=== PATIENT | male | born 1945 | race Caucasian/White ===

== ENCOUNTER 2017-07-02 00:12 | Observation (INO) ==
[2017-07-02] MEDS ORDERED: Ondansetron 4 MG/2 ML VIAL IVP ONE ×3 (00:34→04:33)
[2017-07-02] MEDS ORDERED: Ketorolac 30 MG/ML VIAL IVP ONE (00:34)
[2017-07-02] MEDS ORDERED: *HR* HYDROmorphone (PF) 1 MG/ML SYRINGE IVP ONE ×2 (00:34→02:46)
[2017-07-02 00:46] LABS: Bilirubin,Urine Negative (Negative); Blood,Urine Large (Negative); Clarity,Urine Cloudy (Clear); Color,Urine Yellow (Yellow); Glucose,Urine (UA) Normal (Normal); Ketones,Urine Negative (Negative); Leukocyte Esterase,Urine Negative (Negative); Nitrite,Urine Negative (Negative); Protein,Urine 30 mg/dL (Neg-Trace); Specific Gravity,Urine 1.025 (1.010-1.025); Urobilinogen,Urine Normal (Normal)
[2017-07-02 00:48] LABS: Bacteria,Urine None Seen per hpf (None-Few); Hyaline Casts,Urine None Seen per lpf (None-Few); RBC,Urine TNTC per hpf (0-3); Squamous Epithelial Cell,Urine Moderate per lpf (None-Few)
--- NOTE | 2017-07-02 00:51 | Emergency Department Note ---
Disposition Clinical Impression: Kidney stone on left side Disposition: Home, Self-Care Condition: Good Instructions: Kidney Stones (ED) Reasons to Return/Additional Instructions: Return if you have new/worsening pain. Follow up with your urologist in the next 1 week. Prescriptions: OxyCODONE/APAP 5/325 [Percocet 5/325 MG] 1 each PO Q4HR PRN #20 tablet PRN Reason: Pain Ondansetron ODT [Zofran ODT] 4 mg SL Q6HR PRN #10 tab.rapdis PRN Reason: Nausea And Vomiting Naproxen [Naprosyn] 500 mg PO BID #14 tablet Referrals: Mario Gottlieb DO [Primary Care Provider] - Kavon Sanders MD [Partnered Physician] - Forms: ED Satisfaction Letter, Work/School Release General Adult HPI - General Chief complaint: ED Abdominal Pain Stated complaint: kidney stones Time Seen by Provider: 07/02/17 00:14 Source: patient, EMS Limitations: no limitations Nursing Notes Reviewed: Yes Vital Signs Reviewed: Yes - History of Present Illness HPI Narrative: 72-year-old male with a history of kidney stones. He says approximately 6 months ago he had a right-sided kidney stone that was removed by lithotripsy. He reports sudden onset of left flank pain a couple hours ago. He says it feels like prior kidney stones. It is radiating to the left lower quadrant of his abdomen. His urine has changed colors since this started. No change in bowel movements. He had some nausea but no vomiting. He denies any medical problems Medication he currently takes is aspirin. He denies having a fever. No burning with urination. Pain Scale: 0 Improves with: nothing Worsens with: nothing Associated symptoms: Reports: denies other symptoms Treatments Prior to Arrival: none - Related Data Home Medications Medication Instructions Recorded Confirmed Aspirin Enteric Coated [Aspirin EC] 81 mg PO DAILY 11/19/16 11/19/16 Previous Rx's Medication Instructions Recorded Docusate [Colace] 100 mg PO BID #60 capsule 11/19/16 Oxycodone HCl/Acetaminophen 1 each PO Q4H PRN #25 tablet 11/19/16 [Percocet 5-325 mg Tablet] Phenazopyridine HCl [Pyridium] 200 mg PO TIDAC #12 tab 11/19/16 Naproxen [Naprosyn] 500 mg PO BID #14 tablet 07/02/17 Ondansetron ODT [Zofran ODT] 4 mg SL Q6HR PRN #10 tab.rapdis 07/02/17 OxyCODONE/APAP 5/325 [Percocet 1 each PO Q4HR PRN #20 tablet 07/02/17 5/325 MG] Allergies Allergy/AdvReac Type Severity Reaction Status Date / Time No Known Allergies Allergy Verified 11/19/16 07:52 All systems ED: reviewed and negative except as stated. Constitutional: Denies: fever ENT ED: Denies: throat pain Cardiovascular: Denies: chest pain Respiratory: Denies: cough Gastrointestinal: Reports: abdominal pain (LLQ) Integumentary: Denies: rash Past Medical History - Past Medical History Medical history: Reports: kidney stones Surgical history: Reports: no surgical history Psychiatric history: Reports: no psych history - Social History Smoking Status: Never smoker Smokeless Tobacco Status: No Alcohol use: Reports: none Drug use: Reports: none Physical Exam - General Limitations: no limitations General appearance: alert, in no apparent distress - Head Head exam: atraumatic - Eye Eye exam: Present: normal appearance, PERRL - ENT ENT exam: normal exam - Neck Neck exam: Present: normal inspection - Respiratory Respiratory exam: Present: normal lung sounds bilaterally. Absent: respiratory distress - Cardiovascular Cardiovascular exam: Present: regular rate, normal rhythm - Abdominal Exam Abdominal exam: Present: soft, Non-Tender - Extremities Exam Extremities exam: Present: normal inspection - Back Exam Back exam: Present: CVA tenderness (L). Absent: CVA tenderness (R) - Neurological Exam Neurological exam: Present: alert, oriented X3 - Psychiatric Psychiatric exam: Present: normal affect, normal mood - Skin Skin exam: Present: warm, dry Course Course Narrative: Concern for left kidney stone. He states this feels just like his prior kidney stones. Will CT and treat symptomatically. 2 mm stone on the left. This is consistent with the symptoms that he is having. Pain and nausea controlled and he would like to go home. Vital Signs Temperature 97.8 F 07/02/17 00:16 Pulse Rate 89 07/02/17 00:16 Respiratory Rate 20 07/02/17 00:16 Blood Pressure 145/75 07/02/17 00:16 O2 Sat by Pulse Oximetry 98 07/02/17 00:16 Temperature 97.8 F 07/02/17 00:16 Pulse Rate 68 07/02/17 02:00 Respiratory Rate 18 07/02/17 02:00 Blood Pressure 142/77 07/02/17 02:00 O2 Sat by Pulse Oximetry 98 07/02/17 02:00 Oxygen Delivery Oxygen Delivery Nasal Cannula Medical Decision Making - Medical Records Medical records reviewed: Yes I reviewed the patient's medical records. - Lab Data Lab results reviewed: Yes I reviewed the patient's lab results. Result diagrams: 07/02/17 00:21 07/02/17 00:21 Lab Results 07/02/17 07/02/17 07/02/17 Range/Units 00:21 00:21 00:38 WBC 6.1 (4.3-11.1) K/mcL RBC 4.72 (4.19-5.50) M/mcL Hgb 14.2 (12.9-16.9) g/dL Hct 42.4 (37.5-50.1) % MCV 89.8 (83.0-100.0) fL MCH 30.1 (28.0-33.3) pg MCHC 33.5 (31.6-35.5) g/dL RDW 13.7 (11.5-14.5) % Plt Count 147 (140-400) K/mcL MPV 11.1 (9.4-12.4) fL Immature Gran % 0.3 (0-4) % Seg Neutrophils % 65.1 % Lymphocytes % 21.3 % Monocytes % 11.6 % Eosinophils % 1.2 % Basophils % 0.5 % Neutrophils # 4.0 (1.6-8.9) K/mcL Lymphocytes # 1.3 (0.6-4.6) K/mcL Monocytes # 0.7 (0.0-1.3) K/mcL Eosinophils # 0.1 (0.0-0.6) K/mcL Basophils # 0.0 (0.0-0.2) K/mcL Sodium 142 (136-145) mEq/L Potassium 3.6 (3.5-5.1) mEq/L Chloride 109 H (98-107) mEq/L Carbon Dioxide 22 L (23-29) mEq/L BUN 18 (8-23) mg/dL Creatinine 1.08 (0.70-1.30) mg/dL Est GFR ( Amer) > 60 (> 60) Est GFR (Non-Af Amer) > 60 (> 60) BUN/Creatinine Ratio 17 (6-26) Glucose 144 H (70-105) mg/dL Calculated Osmolality 298 (280-300) Calcium 8.8 (8.6-10.3) mg/dL Total Bilirubin 0.9 (0.3-1.0) mg/dL AST 22 (13-39) Units/L ALT 16 (7-52) Units/L Alkaline Phosphatase 46 (34-104) Units/L Serum Total Protein 5.9 L (6.4-8.9) g/dL Albumin 4.0 (3.5-5.7) g/dL Globulin 1.9 L (2.4-3.5) g/dL Albumin/Globulin Ratio 2.1 (1.1-2.2) Urine Color Yellow (Yellow) Urine Clarity Cloudy A (Clear) Urine pH 6.0 (5.0-8.0) pH Units Ur Specific [place] 1.025 (1.010-1.025) Urine Protein 30 H (Neg-Trace) mg/dL Urine Glucose (UA) Normal (Normal) mg/dL Urine Ketones Negative (Negative) mg/dL Urine Blood Large H (Negative) Urine Nitrite Negative (Negative) Urine Bilirubin Negative (Negative) Urine Urobilinogen Normal (Normal) mg/dL Ur Leukocyte Esterase Negative (Negative) Urine Microscopic RBC TNTC H (0-3) per hpf Urine Microscopic WBC 3-5 H (0-3) per hpf Ur Squamous Epith Cells Moderate H (None-Few) per lpf Urine Bacteria None Seen (None-Few) per hpf Hyaline Casts None Seen (None-Few) per lpf Ur Culture Indicated? NO (NO) - Radiology Data Radiology results reviewed: Yes I reviewed the patient's radiology results.
--- NOTE | 2017-07-02 00:54 | Emergency Department Note ---
START Narrative - START START: I examined this patient and my medical decision-making was reviewed with the Resident Physician. I agree with the documented findings, disposition and treatment plan as described except to the extent set forth below. 72 year old male with hX of kidney stones which have required lithrottripst and stents in the past per Dr. Mckinney presents with flank pain and hematuira. We will do a kidney stone rule out ABCT for evaluation.
[2017-07-02 01:01] LABS: Basophils % 0.5 %; Eosinophils # 0.1 K/mcL (0.0-0.6); Eosinophils % 1.2 %; Hematocrit 42.4 % (37.5-50.1); Hemoglobin 14.2 g/dL (12.9-16.9); Immature Granulocytes % 0.3 % (0-4); Lymphocytes # 1.3 K/mcL (0.6-4.6); Lymphocytes % 21.3 %; Mean Corpuscular HGB Conc 33.5 g/dL (31.6-35.5); Mean Corpuscular Hemoglobin 30.1 pg (28.0-33.3); Mean Corpuscular Volume 89.8 fL (83.0-100.0); Mean Platelet Volume 11.1 fL (9.4-12.4); Monocytes # 0.7 K/mcL (0.0-1.3); Monocytes % 11.6 %; Platelet Count 147 K/mcL (140-400); Red Blood Count 4.72 M/mcL (4.19-5.50); Red Cell Distribution Width 13.7 % (11.5-14.5); Segmented Neutrophils % 65.1 %
[2017-07-02 01:54] LABS: Alanine Aminotransferase 16 Units/L (7-52); Albumin/Globulin Ratio 2.1 (1.1-2.2); Alkaline Phosphatase 46 Units/L (34-104); Aspartate Amino Transferase 22 Units/L (13-39); BUN/Creatinine Ratio 17 (6-26); Bilirubin,Total 0.9 mg/dL (0.3-1.0); Blood Urea Nitrogen 18 mg/dL (8-23); Calcium 8.8 mg/dL (8.6-10.3); Carbon Dioxide 22 mEq/L (23-29); Chloride 109 mEq/L (98-107); Globulin 1.9 g/dL (2.4-3.5); Glucose 144 mg/dL (70-105); Osmolality,Calculated 298 (280-300); Potassium 3.6 mEq/L (3.5-5.1); Sodium 142 mEq/L (136-145); Total Protein 5.9 g/dL (6.4-8.9); eGFR For African Americans > 60 (> 60); eGFR For Non-African Americans > 60 (> 60)
[2017-07-02] MEDS ORDERED: *HR* Promethazine 25 MG/ML VIAL IVP ONE (01:57)
[2017-07-02] MEDS ORDERED: 0.9 % Sodium Chloride 1,000 ML IVC ONE (03:13)
[2017-07-02] MEDS ORDERED: *HR* OxyCODONE/APAP 5/325 TABLET PO PRN ×3 (04:33→18:05)
[2017-07-02] MEDS: *HR* Morphine 2 MG/ML SYRINGE IVP PRN ×2 (04:44→10:13)
[2017-07-02] MEDS ORDERED: 0.9 % Sodium Chloride 1,000 ML IVC SCH ×3 (04:45→18:05)
--- NOTE | 2017-07-02 05:06 | Internal Med History&Physical ---
Date of Encounter: 07/02/17 Time of Encounter: 05:06 Assessment and Plan (1) Ureteral stone with hydronephrosis Current visit: Yes Status: Acute Urology has been consulted. Will continue IV fluids and symptomatic management with morphine and Zofran prn. (2) Abdominal pain Current visit: Yes Status: Acute Qualifiers: Abdominal location: unspecified location Qualified Code(s): R10.9 - Unspecified abdominal pain (3) Nausea and vomiting Current visit: Yes Status: Acute Qualifiers: Vomiting type: unspecified Vomiting Intractability: unspecified Qualified Code(s): R11.2 - Nausea with vomiting, unspecified Internal Medicine - H&P: HPI History of present illness: 72-year-old male with a history of kidney stones. He says approximately 6 months ago he had a right-sided kidney stone that was removed by lithotripsy. He reports sudden onset of left flank pain radiating to the left lower quadrant of his abdomen. His urine has changed colors since this started. Complains of nausea and vomiting. CT abdomen/pelvis showed left sided hydronephrosis with a proximal left ureteral calculus. Patient was about to be discharged but had severe nausea and pain and so will be admitted. Urology was consulted and notified about the patient. Past Med Surg Social Fam HX - Past Medical History Medical history: kidney stones Psychiatric history: no psych history - Past Surgical History Surgical History: no surgical history - Social History Smoking Status: Never smoker Smokeless Tobacco Status: No Alcohol use: none Drug use: none - Family History Father Adopted: [place]: Stoney Stallworth Age: 72 Family Member Ethnicity: Non- Living Status: Hx Family Cardiac Disorders: No Hx Family Respiratory Disorders: Yes Hx Family Cancer: No Hx Family GI Disorders: No Hx Family Genitourinary Disorders: No Hx Family Endocrine Disorder: No Hx Family Musculoskeletal Disorders: No Hx Family Neuromuscular Disorders: No Hx Family Neurologic Disorders: No Hx Family HEENT Disorders: No Hx Family Autoimmune Disorders: No Hx Family Reproductive Disorders: No Hx Family Psychosocial Disorders: No Hx Family Medical Disorders: No Internal Medicine - H&P: Meds Aspirin Enteric Coated [Aspirin EC] 81 mg PO DAILY 11/19/16 [History] Docusate [Colace] 100 mg PO BID #60 capsule 11/19/16 [Rx] Oxycodone HCl/Acetaminophen [Percocet 5-325 mg Tablet] 1 each PO Q4H PRN #25 tablet 11/19/16 [Rx] Phenazopyridine HCl [Pyridium] 200 mg PO TIDAC #12 tab 11/19/16 [Rx] Naproxen [Naprosyn] 500 mg PO BID #14 tablet 07/02/17 [Rx] Ondansetron ODT [Zofran ODT] 4 mg SL Q6HR PRN #10 tab.rapdis 07/02/17 [Rx] OxyCODONE/APAP 5/325 [Percocet 5/325 MG] 1 each PO Q4HR PRN #20 tablet 07/02/17 [Rx] 3 Allergy/AdvReac Type Severity Reaction Status Date / Time No Known Allergies Allergy Verified 11/19/16 07:52 All Systems PM: A 10-system review of systems was performed and is negative for pertinent findings except as documented above in the HPI. - Constitutional Vitals: Temp Pulse Resp BP Pulse Ox 97.3 F L 64 15 162/94 99 07/02/17 04:03 07/02/17 04:03 07/02/17 04:03 07/02/17 04:03 07/02/17 04:03 Exam: Gen: AAOx3, mild distress CVS: RRR Lungs: CTAB Abd: soft, + tender, normoactive bowel sounds, non-rigid Ext: No edema Internal Med - H&P Results - Labs CBC & Chem 7: 07/02/17 00:21 07/02/17 00:21
[2017-07-02] MEDS ORDERED: Ketorolac 30 MG/ML VIAL IVP PRN (05:10)
[2017-07-02] MEDS ORDERED: Naloxone 0.4 MG/ML INJ IVP PRN ×2 (05:10→18:05)
[2017-07-02] MEDS ORDERED: Ondansetron 4 MG/2 ML VIAL IVP PRN ×2 (05:11→18:05)
[2017-07-02] MEDS: 0.9 % Sodium Chloride 1,000 ML IVC SCH ×2 (05:44→12:31)
--- NOTE | 2017-07-02 06:46 | Urology - Consult Note ---
Date of Encounter: 07/02/17 Time of Encounter: 06:45 Urology CN:HPI Consult date: 07/02/17 History of present illness: Patient with a hx of stones. presents to ER with acute left flank pain and illness. CT scan below Left-sided hydronephrosis with a proximal left ureteral calculus. There are also calculi in both kidneys. Past Med Surg Social Fam HX - Past Medical History Medical history: kidney stones Psychiatric history: no psych history - Past Surgical History Surgical History: no surgical history - Social History Smoking Status: Never smoker Smokeless Tobacco Status: No Alcohol use: none Drug use: none - Family History Father Adopted: [place]: Stoney Stallworth Age: 72 Family Member Ethnicity: Non- Living Status: Hx Family Cardiac Disorders: No Hx Family Respiratory Disorders: Yes Hx Family Cancer: No Hx Family GI Disorders: No Hx Family Genitourinary Disorders: No Hx Family Endocrine Disorder: No Hx Family Musculoskeletal Disorders: No Hx Family Neuromuscular Disorders: No Hx Family Neurologic Disorders: No Hx Family HEENT Disorders: No Hx Family Autoimmune Disorders: No Hx Family Reproductive Disorders: No Hx Family Psychosocial Disorders: No Hx Family Medical Disorders: No Medications and Allergies Aspirin Enteric Coated [Aspirin EC] 81 mg PO DAILY 11/19/16 [History] Docusate [Colace] 100 mg PO BID #60 capsule 11/19/16 [Rx] Oxycodone HCl/Acetaminophen [Percocet 5-325 mg Tablet] 1 each PO Q4H PRN #25 tablet 11/19/16 [Rx] Phenazopyridine HCl [Pyridium] 200 mg PO TIDAC #12 tab 11/19/16 [Rx] Naproxen [Naprosyn] 500 mg PO BID #14 tablet 07/02/17 [Rx] Ondansetron ODT [Zofran ODT] 4 mg SL Q6HR PRN #10 tab.rapdis 07/02/17 [Rx] OxyCODONE/APAP 5/325 [Percocet 5/325 MG] 1 each PO Q4HR PRN #20 tablet 07/02/17 [Rx] 3 Allergy/AdvReac Type Severity Reaction Status Date / Time No Known Allergies Allergy Verified 11/19/16 07:52 Exam Initial Vital Signs Temp Pulse Resp BP Pulse Ox 97.8 F 89 20 145/75 98 07/02/17 00:16 07/02/17 00:16 07/02/17 00:16 07/02/17 00:16 07/02/17 00:16 Urology Results - Labs 07/02/17 00:21 07/02/17 00:21 Abnormal lab results Chloride 109 mEq/L (98-107) H 07/02/17 00:21 Carbon Dioxide 22 mEq/L (23-29) L 07/02/17 00:21 Glucose 144 mg/dL (70-105) H 07/02/17 00:21 Serum Total Protein 5.9 g/dL (6.4-8.9) L 07/02/17 00:21 Globulin 1.9 g/dL (2.4-3.5) L 07/02/17 00:21 Urine Clarity Cloudy (Clear) A 07/02/17 00:38 Urine Protein 30 mg/dL (Neg-Trace) H 07/02/17 00:38 Urine Blood Large (Negative) H 07/02/17 00:38 Urine Microscopic RBC TNTC per hpf (0-3) H 07/02/17 00:38 Urine Microscopic WBC 3-5 per hpf (0-3) H 07/02/17 00:38 Ur Squamous Epith Cells Moderate per lpf (None-Few) H 07/02/17 00:38 All other labs normal. Consult Discharge Plan - Plan Referrals: Mario Gottlieb DO [Primary Care Provider] -
--- NOTE | 2017-07-02 13:44 | Event Note ---
Date of Encounter: 07/02/17 Time of Encounter: 13:42 Patient is a 72 year 72 male who has no significant medical history was admitted today for left flank pain, he was find the obstructive kidney stone. His flank pain is better now. urology was consuled, he is going to have cystoscopic stents placement and stone removal.
[2017-07-02] MEDS ORDERED: *HR* Morphine 2 MG/ML SYRINGE IVP PRN ×2 (13:53→18:05)
--- NOTE | 2017-07-02 13:53 | Anesthesia Evaluation PreOp ---
Date of Encounter: 07/02/17 Time of Encounter: 13:51 - Past History Planned Operation: left USE with laser Cardiac History: Denies any Significant Hx Pulmonary History: Denies Any Significant HX EMPLOYMENT CONSULTANT History: Denies Any Significant HX Other Medical History: Denies Any Significant HX, Renal (left ureteral stone) Anesthesia History: No Prior Anesthetic Complications, Past Anesthesia (right USE 11/21) Alcohol Use: none Drug use: none Medications and Allergies Aspirin Enteric Coated [Aspirin EC] 81 mg PO DAILY 11/19/16 [History] 3 Allergy/AdvReac Type Severity Reaction Status Date / Time No Known Allergies Allergy Verified 11/19/16 07:52 - Meds/Allergy Pre-op Review Medications Reviewed: Yes Allergies Reviewed: Yes Beta Blockers on Current Med List: No Anesthesia Results - Labs 07/02/17 00:21 07/02/17 00:21 Anesthesia Exam Selected Entries 07/02/17 10:45 Temperature 97.7 F Pulse Rate 65 Respiratory Rate 16 Blood Pressure 152/76 O2 Sat by Pulse Oximetry 95 Weight: 98kg NPO (# of Hours): 8 - HEENT Pupil (Motor): EOMI Mallampati: II Teeth: Normal (lower), Edentulous (upper) Denture Type: Upper: Complete Oral Opening: Greater than 3 - EMPLOYMENT CONSULTANT LOC: Oriented EMPLOYMENT CONSULTANT Motor: Normal RUE, Normal LUE, Normal RLE, Normal LLE, Normal Face EMPLOYMENT CONSULTANT Sensory: Normal: RUE, LUE, RLE, LLE, Face - Cardiac Rhythm: Regular Murmur: None - Pulmonary Breath Sounds: bilateral Clear Respiratory Effort: Symmetrical Anesthesia Assess/Plan ASA Score: 1 Modified Paulo Scale for Level of Consciousness: Cooperative, oriented, and tranquil Anesthetic Plan: General Monitoring Plan: Standard Monitors Recovery Plan: PACU (agrees to GA)
[2017-07-02] MEDS ORDERED: Dexamethasone 4 MG/ML VIAL ONE (15:51)
[2017-07-02] MEDS ORDERED: *HR* Midazolam HCl 2 MG/2 ML VIAL ONE (15:51)
[2017-07-02] MEDS ORDERED: Lidocaine -MPF 2% 2 ML VIAL ONE (15:51)
[2017-07-02] MEDS ORDERED: *HR* FentaNYL (PF) 100 MCG/2 ML VIAL ONE (15:51)
[2017-07-02] MEDS ORDERED: *HR* Propofol 200 MG/20 ML VIAL IVP ONE (15:51)
[2017-07-02] MEDS ORDERED: Ondansetron 4 MG/2 ML VIAL ONE (15:51)
[2017-07-02] MEDS ORDERED: EPHEDrine 50 MG/ML VIAL ONE (16:16)
[2017-07-02] MEDS ORDERED: *HR* HYDROmorphone (PF) 1 MG/ML SYRINGE IVP PRN (16:19)
[2017-07-02] MEDS ORDERED: *HR* Promethazine 25 MG/ML VIAL IVP PRN (16:19)
--- NOTE | 2017-07-02 16:41 | Operative Note ---
Date of procedure: 07/02/17 Pre-op diagnosis: left ureteral stone Post-op diagnosis: same Procedure: left ureteroscopic stone extraction left retrograde pyelogram left JJ stent Anesthesia: GETA Surgeon: Daniel Garcia Estimated blood loss (cc): 0 Specimen: stone Condition: stable Disposition: PACU Procedure in Detail: PROCEDURE IN DETAIL: Patient was taken back to the operating room, positioned supine on the operating table. Anesthesia was applied without complication. They were moved into dorsal lithotomy. Careful attention was maintained to cushion all pressure points for patient's safety. They were prepped and draped in sterile fashion. Time-out was performed with the proper patient and procedure. A 21-Vietnamese rigid cystoscope was inserted into the bladder without difficulty. Systematic examination of bladder revealed no abnormalities. The left ureteral orifice was cannulated using a 5-Vietnamese ureteral Catheter and a retrograde pyelogram was performed using Isovue. A filling defect was identified which corresponded to the stone in the distal left ureter. At that point, a zip wire was placed through the 5-Vietnamese and confirmed in the renal pelvis with fluoroscopy. A semi-rigid ureteroscope was carefully inserted into the bladder and guided into the ureteral oriface. At that point, the stone was encountered and it quite impacted at the distal ureter. I was able to maneuver the stone out of the edematous ureter and basket extract without performing laser lithotripsy. Stone was sent for analysis. A 4.8 x 26 ureteral stent was placed over the zip wire under fluoroscopy without complication. The bladder was drained. The string was left attached to the stent and secured to the patient for easy removal in approximately 72 hours
--- NOTE | 2017-07-02 16:42 | Event Note ---
Date of Encounter: 07/02/17 Time of Encounter: 16:41 Stone was successfully extracted. Will observe patient overnight. If vital signs are stable and his pain is controlled okay to discharge in the morning. Patient can have the stent removed in 72 hours. Okay to remove stent at home by pulling on the string until the entire stent is out or come to the urology office Saturday for removal by nursing staff.
--- NOTE | 2017-07-02 17:02 | Anesthesia Evaluation Post Op ---
Date of Encounter: 07/02/17 Time of Encounter: 17:02 - Vital Signs Vital Signs: Selected Entries 07/02/17 16:59 Temperature 98.1 F Pulse Rate 82 Respiratory Rate 16 Blood Pressure 138/71 O2 Sat by Pulse Oximetry 94 - Lungs Lungs: Clear Ascult./Percussion - Airway Airway: Non-obstructed - Cardiovascular Regular Rate - Mental Status Mental Status: Alert & Oriented, Answers Appropriately - Pain Pain Scale: 0 Pain Scale used: Numeric (1 - 10) - Nausea Vomiting Nausea Vomiting: Not Present - Hydration Hydration: Ice chips, Has not voided - Discharge PostOp Status: Transfer Patient to floor
[2017-07-03 04:20] LABS: Basophils % 0.1 %; Eosinophils % 0.4 %; Hematocrit 40.6 % (37.5-50.1); Hemoglobin 13.4 g/dL (12.9-16.9); Immature Granulocytes % 0.2 % (0-4); Lymphocytes # 0.8 K/mcL (0.6-4.6); Lymphocytes % 10.4 %; Mean Corpuscular Hemoglobin 29.9 pg (28.0-33.3); Mean Corpuscular Volume 90.6 fL (83.0-100.0); Mean Platelet Volume 10.9 fL (9.4-12.4); Monocytes # 0.9 K/mcL (0.0-1.3); Neutrophils # 6.3 K/mcL (1.6-8.9); Platelet Count 134 K/mcL (140-400); Red Blood Count 4.48 M/mcL (4.19-5.50); Red Cell Distribution Width 14.2 % (11.5-14.5); Segmented Neutrophils % 77.9 %
[2017-07-03 04:34] LABS: BUN/Creatinine Ratio 18 (6-26); Blood Urea Nitrogen 15 mg/dL (8-23); Calcium 8.4 mg/dL (8.6-10.3); Carbon Dioxide 25 mEq/L (23-29); Chloride 111 mEq/L (98-107); Glucose 115 mg/dL (70-105); Osmolality,Calculated 292 (280-300); Potassium 4.2 mEq/L (3.5-5.1); Sodium 140 mEq/L (136-145); eGFR For African Americans > 60 (> 60); eGFR For Non-African Americans > 60 (> 60)
[2017-07-03 06:53] VITALS: BP 133/69
--- NOTE | 2017-07-03 07:02 | Urology Progress Note ---
Date of Encounter: 07/03/17 Time of Encounter: 07:01 - Assessment and Plan (1) Ureteral stone with hydronephrosis Current Visit: Yes Status: Resolved Assessment and plan: Okay with discharge per urology standpoint. Patient also ready for discharge. Labs and vital signs stable. Patient states he is comfortable removing the stent at home on Saturday. M.D. provided instructions. Okay to follow-up with urology in 2 weeks. Recommend Pyridium 200 mg by mouth 3 times a day when necessary for stent discomfort or burning on urination. Vicodin as needed for discomfort. Progress Note Subjective: feels better Narrative: doing well after stone extraction Objective Initial Vital Signs Temp Pulse Resp BP Pulse Ox 97.8 F 89 20 145/75 98 07/02/17 00:16 07/02/17 00:16 07/02/17 00:16 07/02/17 00:16 07/02/17 00:16 - General physical appearance Present: well developed, no distress - Labs 07/03/17 03:48 07/03/17 03:48 Diabetes panel 07/03/17 Range/Units 03:48 Sodium 140 (136-145) mEq/L Potassium 4.2 (3.5-5.1) mEq/L Chloride 111 H (98-107) mEq/L Carbon Dioxide 25 (23-29) mEq/L BUN 15 (8-23) mg/dL Creatinine 0.82 (0.70-1.30) mg/dL Glucose 115 H (70-105) mg/dL Calcium 8.4 L (8.6-10.3) mg/dL Calcium panel 07/03/17 Range/Units 03:48 Calcium 8.4 L (8.6-10.3) mg/dL Pituitary panel 07/03/17 Range/Units 03:48 Sodium 140 (136-145) mEq/L Potassium 4.2 (3.5-5.1) mEq/L Chloride 111 H (98-107) mEq/L Carbon Dioxide 25 (23-29) mEq/L BUN 15 (8-23) mg/dL Creatinine 0.82 (0.70-1.30) mg/dL Glucose 115 H (70-105) mg/dL Calcium 8.4 L (8.6-10.3) mg/dL Adrenal panel 07/03/17 Range/Units 03:48 Sodium 140 (136-145) mEq/L Potassium 4.2 (3.5-5.1) mEq/L Chloride 111 H (98-107) mEq/L Carbon Dioxide 25 (23-29) mEq/L BUN 15 (8-23) mg/dL Creatinine 0.82 (0.70-1.30) mg/dL Glucose 115 H (70-105) mg/dL Calcium 8.4 L (8.6-10.3) mg/dL Consult Discharge Plan - Plan Referrals: Mario Gottlieb DO [Primary Care Provider] -
[2017-07-03] MEDS ORDERED: Aspirin Enteric Coated 81 MG Tablet PO SCH (09:00)
--- NOTE | 2017-07-03 10:07 | Discharge Summary ---
Date of Encounter: 07/03/17 Time of Encounter: 09:57 - Discharge Diagnosis (1) Kidney stone on left side Priority: Primary Status: Acute (2) Ureteral stone with hydronephrosis Priority: Secondary Status: Resolved (3) Abdominal pain Priority: Secondary Status: Acute Qualifiers: Abdominal location: unspecified location Qualified Code(s): R10.9 - Unspecified abdominal pain - Discharge Medications Prescriptions: Phenazopyridine [Pyridium] 200 mg PO TID PRN #21 tablet PRN Reason: burning with urination Home Medications: Aspirin Enteric Coated [Aspirin EC] 81 mg PO DAILY 11/19/16 [History] Phenazopyridine [Pyridium] 200 mg PO TID PRN #21 tablet 07/03/17 [Rx] Allergies/Adverse Reactions: 3 Allergy/AdvReac Type Severity Reaction Status Date / Time No Known Allergies Allergy Verified 11/19/16 07:52 Date of admission: 07/02/17 03:31 Primary care physician: Mario Gottlieb, - Patient Status Disposition: Home, Self-Care Condition: Good Functional capacity at discharge: independent ambulation Overall status at discharge: patient is back to baseline - Discharge Instructions Follow Up With: Mario Gottlieb DO [Primary Care Provider] - Daniel Garcia MD [Partnered Physician] - Additional Instructions: He can take [id number] Tylenol for abdominal pain. Call your PCP or return to the hospital if he experience fever, passing blood clots in the urine or have increasing abdominal or back pain. - Diet and Activity Activity: increase activity as tolerated Diet: advance to your usual diet Hospital course: Mr. Stallworth is a 72 year old male with past medical history significant for kidney stones. He presented to the hospital with sudden onset left flank pain radiating to the left lower part of his abdomen. He reported nausea vomiting. CT of the abdomen and pelvis done in the emergency department showed left-sided hydronephrosis with a proximal left ureteral calculus. Patient had severe nausea and pain and therefore was admitted for further care. Urology was consulted. He underwent cystoscopy with left retrograde pyelogram and stone extraction with placement of a left ureteral stent. He tolerated the procedure well. Today his pain has improved. He has been afebrile. Vital signs are normal. Nausea has resolved. He tolerated diet. He did not have evidence of a UTI and therefore did not receive antibiotics. Kidney function is within normal range. He will be discharged home and was instructed to follow-up with PCP and urologist. - Time Spent with Patient Total time spent providing and/or coordinating discharge services: - Constitutional Vitals: Temp Pulse Resp BP Pulse Ox 98.2 F 67 15 133/69 92 07/03/17 06:50 07/03/17 06:50 07/03/17 06:50 07/03/17 06:50 07/03/17 06:50 - Respiratory Respiratory exam: Present: CTAB. Absent: accessory muscle use, rales, rhonchi, wheezes - Cardiovascular Cardiovascular exam: Present: RRR, +S1, +S2. Absent: diastolic murmur, gallop, rubs, systolic murmur - GI/Abdominal GI/Abdominal exam: Present: normal bowel sounds, soft, no peritoneal signs. Absent: distended, tenderness - Extremities Exam Extremities exam: Present: warm, radial pulses palpable and symmetrical. Absent : calf tenderness, cyanotic, pedal edema
== END 2017-07-03 10:48 | disposition home or self-care (01) ==
LOC: 3ANU 00:12 → EMEROO 00:12 → SUATTDRO 03:31 → 3ANU 03:51
PROVIDERS: ADMIT Internal Medicine; ATTEND Internal Medicine

== ENCOUNTER 2020-06-10 15:38 | Inpatient (IN) ==
[2020-06-10 16:49] LABS: Hematocrit 45.9 % (37.5-50.1); Hemoglobin 15.9 g/dL (12.9-16.9); Immature Granulocytes % 0.3 % (0-4); Immature Platelets 4.1 % (1.1-6.1); Lymphocytes # 0.4 K/mcL (0.6-4.6); Mean Corpuscular HGB Conc 34.6 g/dL (31.6-35.5); Mean Corpuscular Hemoglobin 30.3 pg (28.0-33.3); Mean Corpuscular Volume 87.6 fL (83.0-100.0); Mean Platelet Volume 10.4 fL (9.4-12.4); Monocytes # 0.4 K/mcL (0.0-1.3); Monocytes % 6.7 %; Platelet Count 134 K/mcL (140-400); Red Blood Count 5.24 M/mcL (4.19-5.50); Red Cell Distribution Width 14.4 % (11.5-14.5); White Blood Count 5.8 K/mcL (4.3-11.1)
[2020-06-10 16:51] LABS: INR 1.2; Prothrombin Time 13.5 Seconds (9.4-12.1)
[2020-06-10 16:54] LABS: Activated Partial Thrombo Time 27.7 Seconds (26.0-36.0)
[2020-06-10 17:08] LABS: Alanine Aminotransferase 99 Units/L (7-52); Albumin 4.1 g/dL (3.5-5.7); Albumin/Globulin Ratio 1.5 (1.1-2.2); Alkaline Phosphatase 56 Units/L (34-104); Aspartate Amino Transferase 101 Units/L (13-39); BUN/Creatinine Ratio 17 (6-26); Bilirubin,Direct 0.3 mg/dL (0.0-0.2); Bilirubin,Indirect 0.7 mg/dL (0.0-1.0); Blood Urea Nitrogen 14 mg/dL (8-23); Carbon Dioxide 28 mEq/L (23-29); Chloride 98 mEq/L (98-107); Globulin 2.8 g/dL (2.4-3.5); Glucose 115 mg/dL (70-105); Lipase 7 Units/L (11-82); Osmolality,Calculated 283 (280-300); Potassium 3.8 mEq/L (3.5-5.1); Sodium 136 mEq/L (136-145); Total Protein 6.9 g/dL (6.4-8.9); Troponin I < 0.03 ng/mL (< 0.04); eGFR For African Americans > 60 (> 60); eGFR For Non-African Americans > 60 (> 60)
[2020-06-10 17:25] LABS: Bilirubin,Urine Negative (Negative); Blood,Urine Negative (Negative); Clarity,Urine Clear (Clear); Color,Urine Yellow (Yellow); Glucose,Urine (UA) Normal (Normal); Ketones,Urine 20 mg/dL (Negative); Leukocyte Esterase,Urine Negative (Negative); Mucus,Urine Few per lpf (None-Few); Nitrite,Urine Negative (Negative); Protein,Urine 100 mg/dL (Neg-Trace); Specific Gravity,Urine 1.026 (1.010-1.025); WBC,Urine 0-3 per hpf (0-3)
[2020-06-10] MEDS ORDERED: Isovue-370 500 ML BOTTLE IVP ONE (17:45)
[2020-06-10] MEDS ORDERED: Acetaminophen 325 MG TABLET PO ONE (18:31)
[2020-06-10] MEDS ORDERED: Ondansetron 4 MG/2 ML VIAL ONE (18:41)
[2020-06-10] MEDS ORDERED: Ibuprofen 600 MG TABLET PO ONE (18:57)
[2020-06-10 19:00] LABS: Adenovirus Not Detected (Not Detect); Bordetella Pertussis Not Detected (Not Detect); Chlamydophila pneumoniae Not Detected (Not Detect); Coronavirus 229E Not Detected (Not Detect); Coronavirus HKU1 Not Detected (Not Detect); Coronavirus NL63 Not Detected (Not Detect); Coronavirus OC43 Not Detected (Not Detect); Human Metapneumovirus Not Detected (Not Detect); Human Rhinovirus/Enterovirus Not Detected (Not Detect); Influenza A Subtype 2009 H1 Not Detected (Not Detect); Influenza B Not Detected (Not Detect); Mycoplasma pneumoniae Not Detected (Not Detect); Parainfluenza Virus 1 Not Detected (Not Detect); Parainfluenza Virus 2 Not Detected (Not Detect); Parainfluenza Virus 3 Not Detected (Not Detect); Parainfluenza Virus 4 Not Detected (Not Detect); Respiratory Syncytial Virus Not Detected (Not Detect)
[2020-06-10 19:02] LABS: SARS-CoV-2 DETECTED (Not Detect)
[2020-06-10] MEDS ORDERED: *HR* Heparin 5,000 UNIT/ML VIAL IVP PRN ×2 (19:49)
[2020-06-10] MEDS ORDERED: *HR* Heparin 5,000 UNIT/ML VIAL IVP ONE (19:49)
[2020-06-10] MEDS ORDERED: Dexamethasone 4 MG/ML VIAL IVP ONE (20:09)
[2020-06-10] MEDS ORDERED: Naloxone 0.4 MG/ML INJ IVP PRN (20:22)
[2020-06-10] MEDS ORDERED: Acetaminophen 325 MG TABLET PO PRN (20:22)
[2020-06-10] MEDS: Heparin 25,000UNIT/250ML 1/2NS 25,000 UNIT/250 ML IV.SOLN IVC SCH (20:46)
[2020-06-10 21:12] LABS: Hematocrit 44.2 % (37.5-50.1); Hemoglobin 15.1 g/dL (12.9-16.9); Immature Platelets 3.9 % (1.1-6.1); Mean Corpuscular HGB Conc 34.2 g/dL (31.6-35.5); Mean Corpuscular Hemoglobin 29.5 pg (28.0-33.3); Mean Corpuscular Volume 86.5 fL (83.0-100.0); Mean Platelet Volume 10.1 fL (9.4-12.4); Red Blood Count 5.11 M/mcL (4.19-5.50); Red Cell Distribution Width 14.2 % (11.5-14.5); White Blood Count 5.7 K/mcL (4.3-11.1)
[2020-06-10 21:16] LABS: INR 1.2; Prothrombin Time 13.5 Seconds (9.4-12.1)
[2020-06-10 21:18] LABS: Heparin anti-factor XA UFH < 0.04 IU/mL (0.30-0.70)
[2020-06-11 03:05] LABS: Red Cell Distribution Width 14.5 % (11.5-14.5)
[2020-06-11 03:07] LABS: Hematocrit 46.8 % (37.5-50.1); Hemoglobin 15.4 g/dL (12.9-16.9); Immature Platelets 4.2 % (1.1-6.1); Mean Corpuscular HGB Conc 32.9 g/dL (31.6-35.5); Mean Corpuscular Hemoglobin 28.9 pg (28.0-33.3); Mean Corpuscular Volume 87.8 fL (83.0-100.0); Mean Platelet Volume 10.4 fL (9.4-12.4); Red Blood Count 5.33 M/mcL (4.19-5.50); White Blood Count 4.2 K/mcL (4.3-11.1)
[2020-06-11 03:10] LABS: Heparin anti-factor XA UFH 0.99 IU/mL (0.30-0.70); INR 1.2; Prothrombin Time 13.6 Seconds (9.4-12.1)
[2020-06-11 03:11] LABS: Activated Partial Thrombo Time 104.4 Seconds (26.0-36.0)
[2020-06-11 03:39] LABS: Troponin I < 0.03 ng/mL (< 0.04)
[2020-06-11 03:42] LABS: Alanine Aminotransferase 82 Units/L (7-52); Albumin 3.8 g/dL (3.5-5.7); Albumin/Globulin Ratio 1.5 (1.1-2.2); Alkaline Phosphatase 50 Units/L (34-104); Aspartate Amino Transferase 69 Units/L (13-39); BUN/Creatinine Ratio 23 (6-26); Bilirubin,Total 0.9 mg/dL (0.3-1.0); Blood Urea Nitrogen 17 mg/dL (8-23); C-Reactive Protein 103 mg/L (Less than 10); Calcium 8.5 mg/dL (8.6-10.3); Carbon Dioxide 25 mEq/L (23-29); Chloride 101 mEq/L (98-107); Creatine Kinase 44 Units/L (30-223); Ferritin 315 ng/mL (20-250); Globulin 2.6 g/dL (2.4-3.5); Glucose 207 mg/dL (70-105); Lactate Dehydrogenase 274 Units/L (140-271); Osmolality,Calculated 288 (280-300); Potassium 3.9 mEq/L (3.5-5.1); Sodium 135 mEq/L (136-145); Total Protein 6.4 g/dL (6.4-8.9); eGFR For African Americans > 60 (> 60); eGFR For Non-African Americans > 60 (> 60)
[2020-06-11] MEDS ORDERED: D5% in Water 1,000 ML IVC PRN (07:21)
[2020-06-11] MEDS ORDERED: Dextrose Gel 15 GM/37.5 ML TUBE PO PRN ×2 (07:21)
[2020-06-11] MEDS ORDERED: *HR* Dextrose 50 % in Water (Vial) 50 ML VIAL IVP PRN (07:21)
[2020-06-11] MEDS: Dexamethasone 4 MG/ML VIAL IVP SCH (09:10)
[2020-06-11] MEDS: Insulin LISPRO 300 UNITS/3 ML VIAL SQ SCH ×3 (09:23→17:18)
[2020-06-11] MEDS: Benzonatate 100 MG CAPSULE PO PRN (14:47)
[2020-06-11] MEDS: Ipratropium 1 PUFF INHALER IH SCH ×3 (16:37→23:15)
[2020-06-11] MEDS: cefTRIAXone 1,000 MG in 0.9 % Sodium Chloride Mini Bag 100 ML IVPB SCH (16:44)
[2020-06-11] MEDS: Azithromycin 500 MG in 0.9 % Sodium Chloride 250 ML IVPB SCH (17:18)
[2020-06-11] MEDS: Melatonin 3 MG TABLET PO PRN (23:55)
[2020-06-12] MEDS: Ipratropium 1 PUFF INHALER IH SCH ×5 (03:22→19:38)
[2020-06-12 06:17] LABS: Basophils % 0.1 %; Immature Granulocytes % 0.6 % (0-4); Segmented Neutrophils % 87.8 %
[2020-06-12 06:19] LABS: Hemoglobin 15.2 g/dL (12.9-16.9); Lymphocytes # 0.6 K/mcL (0.6-4.6); Lymphocytes % 4.6 %; Mean Corpuscular HGB Conc 34.5 g/dL (31.6-35.5); Mean Corpuscular Hemoglobin 29.5 pg (28.0-33.3); Mean Corpuscular Volume 85.4 fL (83.0-100.0); Mean Platelet Volume 10.2 fL (9.4-12.4); Monocytes # 0.9 K/mcL (0.0-1.3); Monocytes % 6.9 %; Neutrophils # 11.6 K/mcL (1.6-8.9); Nucleated Red Blood Cells 0.2 /100 WBC (0); Platelet Count 130 K/mcL (140-400); Red Blood Count 5.15 M/mcL (4.19-5.50); Red Cell Distribution Width 14.3 % (11.5-14.5); White Blood Count 13.2 K/mcL (4.3-11.1)
[2020-06-12 06:48] LABS: Alanine Aminotransferase 61 Units/L (7-52); Albumin 3.7 g/dL (3.5-5.7); Albumin/Globulin Ratio 1.4 (1.1-2.2); Alkaline Phosphatase 50 Units/L (34-104); Aspartate Amino Transferase 44 Units/L (13-39); BUN/Creatinine Ratio 26 (6-26); Bilirubin,Total 0.6 mg/dL (0.3-1.0); Blood Urea Nitrogen 23 mg/dL (8-23); Calcium 8.7 mg/dL (8.6-10.3); Carbon Dioxide 24 mEq/L (23-29); Chloride 101 mEq/L (98-107); Globulin 2.6 g/dL (2.4-3.5); Glucose 146 mg/dL (70-105); Osmolality,Calculated 286 (280-300); Potassium 4.1 mEq/L (3.5-5.1); Sodium 135 mEq/L (136-145); Total Protein 6.3 g/dL (6.4-8.9); eGFR For African Americans > 60 (> 60); eGFR For Non-African Americans > 60 (> 60)
[2020-06-12] MEDS: Dexamethasone 4 MG/ML VIAL IVP SCH (09:46)
[2020-06-12] MEDS: Insulin LISPRO 300 UNITS/3 ML VIAL SQ SCH ×4 (09:49→17:12)
[2020-06-12] MEDS: Benzonatate 100 MG CAPSULE PO PRN (11:11)
[2020-06-12] MEDS ORDERED: *HR* Metoprolol 5 MG/5 ML VIAL IVP ONE (13:45)
[2020-06-12] MEDS: cefTRIAXone 1,000 MG in 0.9 % Sodium Chloride Mini Bag 100 ML IVPB SCH (17:17)
[2020-06-12] MEDS: Azithromycin 500 MG in 0.9 % Sodium Chloride 250 ML IVPB SCH (17:55)
[2020-06-12] MEDS: Melatonin 3 MG TABLET PO PRN (20:09)
[2020-06-13] MEDS: Ipratropium 1 PUFF INHALER IH SCH ×6 (00:25→19:46)
[2020-06-13] MEDS: Insulin LISPRO 300 UNITS/3 ML VIAL SQ SCH ×5 (03:10→20:35)
[2020-06-13] MEDS: Benzonatate 100 MG CAPSULE PO PRN (04:43)
[2020-06-13 05:55] LABS: Basophils % 0.1 %; Hemoglobin 15.5 g/dL (12.9-16.9); Immature Granulocytes % 0.7 % (0-4); Lymphocytes # 0.7 K/mcL (0.6-4.6); Mean Corpuscular HGB Conc 33.7 g/dL (31.6-35.5); Mean Corpuscular Hemoglobin 29.6 pg (28.0-33.3); Mean Platelet Volume 9.9 fL (9.4-12.4); Monocytes # 0.9 K/mcL (0.0-1.3); Monocytes % 5.6 %; Platelet Count 195 K/mcL (140-400); Red Blood Count 5.23 M/mcL (4.19-5.50); Red Cell Distribution Width 14.5 % (11.5-14.5); Segmented Neutrophils % 89.6 %; White Blood Count 16.7 K/mcL (4.3-11.1)
[2020-06-13 06:13] LABS: BUN/Creatinine Ratio 28 (6-26); Blood Urea Nitrogen 20 mg/dL (8-23); Calcium 9.1 mg/dL (8.6-10.3); Carbon Dioxide 28 mEq/L (23-29); Chloride 99 mEq/L (98-107); Glucose 116 mg/dL (70-105); Osmolality,Calculated 286 (280-300); Potassium 4.6 mEq/L (3.5-5.1); Sodium 136 mEq/L (136-145); eGFR For African Americans > 60 (> 60); eGFR For Non-African Americans > 60 (> 60)
[2020-06-13] MEDS: Dexamethasone 4 MG/ML VIAL IVP SCH (08:00)
[2020-06-13] MEDS: Heparin 25,000UNIT/250ML 1/2NS 25,000 UNIT/250 ML IV.SOLN IVC SCH ×3 (08:01→12:16)
[2020-06-13] MEDS ORDERED: Metoclopramide 10 MG/2 ML VIAL IVP ONE (10:20)
[2020-06-13] MEDS ORDERED: Dexamethasone 4 MG/ML VIAL IVP ONE (11:06)
[2020-06-13] MEDS ORDERED: Furosemide 20 MG/2 ML VIAL IVP ONE (11:08)
[2020-06-13] MEDS: cefTRIAXone 1,000 MG in 0.9 % Sodium Chloride Mini Bag 100 ML IVPB SCH (18:20)
[2020-06-13] MEDS: Azithromycin 500 MG in 0.9 % Sodium Chloride 250 ML IVPB SCH (18:47)
[2020-06-13] MEDS: Apixaban 5 MG TABLET PO SCH (20:29)
[2020-06-14] MEDS: Ipratropium 1 PUFF INHALER IH SCH ×7 (00:01→23:22)
[2020-06-14 01:26] LABS: Basophils % 0.1 %; Hematocrit 43.9 % (37.5-50.1); Hemoglobin 15.2 g/dL (12.9-16.9); Immature Granulocytes % 0.3 % (0-4); Lymphocytes # 0.4 K/mcL (0.6-4.6); Lymphocytes % 3.1 %; Mean Corpuscular HGB Conc 34.6 g/dL (31.6-35.5); Mean Corpuscular Hemoglobin 30.2 pg (28.0-33.3); Mean Corpuscular Volume 87.1 fL (83.0-100.0); Mean Platelet Volume 10.8 fL (9.4-12.4); Monocytes # 0.5 K/mcL (0.0-1.3); Monocytes % 4.3 %; Platelet Count 206 K/mcL (140-400); Red Blood Count 5.04 M/mcL (4.19-5.50); Red Cell Distribution Width 14.2 % (11.5-14.5); Segmented Neutrophils % 92.2 %; White Blood Count 11.9 K/mcL (4.3-11.1)
[2020-06-14 01:40] LABS: Alanine Aminotransferase 61 Units/L (7-52); Albumin 3.4 g/dL (3.5-5.7); Albumin/Globulin Ratio 1.1 (1.1-2.2); Alkaline Phosphatase 54 Units/L (34-104); Aspartate Amino Transferase 37 Units/L (13-39); BUN/Creatinine Ratio 35 (6-26); Bilirubin,Total 0.9 mg/dL (0.3-1.0); Blood Urea Nitrogen 22 mg/dL (8-23); C-Reactive Protein 112 mg/L (Less than 10); Calcium 8.6 mg/dL (8.6-10.3); Carbon Dioxide 25 mEq/L (23-29); Chloride 101 mEq/L (98-107); Glucose 145 mg/dL (70-105); Lactate Dehydrogenase 282 Units/L (140-271); Osmolality,Calculated 286 (280-300); Potassium 4.2 mEq/L (3.5-5.1); Sodium 135 mEq/L (136-145); Total Protein 6.4 g/dL (6.4-8.9); eGFR For African Americans > 60 (> 60); eGFR For Non-African Americans > 60 (> 60)
[2020-06-14] MEDS ORDERED: Prochlorperazine 10 MG/2 ML VIAL IVP PRN (01:49)
[2020-06-14 01:58] LABS: Ferritin 429 ng/mL (20-250)
[2020-06-14] MEDS: Insulin LISPRO 300 UNITS/3 ML VIAL SQ SCH ×4 (07:46→20:22)
[2020-06-14] MEDS: Apixaban 5 MG TABLET PO SCH ×2 (07:47→20:23)
[2020-06-14] MEDS: Dexamethasone 4 MG/ML VIAL IVP SCH (07:47)
[2020-06-14] MEDS: Furosemide 20 MG/2 ML VIAL IVP SCH (09:35)
[2020-06-14] MEDS ORDERED: Remdesivir 200 MG in 0.9 % Sodium Chloride 100 ML IVPB ONE (14:00)
[2020-06-14] MEDS: cefTRIAXone 1,000 MG in 0.9 % Sodium Chloride Mini Bag 100 ML IVPB SCH (15:35)
[2020-06-14] MEDS: Azithromycin 250 MG TABLET PO SCH (15:36)
[2020-06-14] MEDS ORDERED: Baclofen 10 MG TABLET PO ONE (23:05)
[2020-06-15] MEDS: Ipratropium 1 PUFF INHALER IH SCH ×5 (03:14→20:39)
[2020-06-15 05:26] LABS: Basophils % 0.1 %; Hematocrit 42.6 % (37.5-50.1); Hemoglobin 14.6 g/dL (12.9-16.9); Immature Granulocytes % 0.4 % (0-4); Lymphocytes # 0.6 K/mcL (0.6-4.6); Lymphocytes % 4.2 %; Mean Corpuscular HGB Conc 34.3 g/dL (31.6-35.5); Mean Corpuscular Hemoglobin 29.6 pg (28.0-33.3); Mean Corpuscular Volume 86.2 fL (83.0-100.0); Mean Platelet Volume 10.7 fL (9.4-12.4); Neutrophils # 12.1 K/mcL (1.6-8.9); Platelet Count 251 K/mcL (140-400); Red Blood Count 4.94 M/mcL (4.19-5.50); Red Cell Distribution Width 14.2 % (11.5-14.5); Segmented Neutrophils % 88.3 %; White Blood Count 13.7 K/mcL (4.3-11.1)
[2020-06-15 05:35] LABS: INR 1.6; Prothrombin Time 17.9 Seconds (9.4-12.1)
[2020-06-15 05:42] LABS: Alanine Aminotransferase 64 Units/L (7-52); Albumin 3.5 g/dL (3.5-5.7); Albumin/Globulin Ratio 1.3 (1.1-2.2); Alkaline Phosphatase 65 Units/L (34-104); Aspartate Amino Transferase 37 Units/L (13-39); BUN/Creatinine Ratio 42 (6-26); Bilirubin,Total 0.9 mg/dL (0.3-1.0); Blood Urea Nitrogen 28 mg/dL (8-23); Calcium 8.9 mg/dL (8.6-10.3); Carbon Dioxide 26 mEq/L (23-29); Chloride 101 mEq/L (98-107); Globulin 2.8 g/dL (2.4-3.5); Glucose 174 mg/dL (70-105); Osmolality,Calculated 292 (280-300); Potassium 3.9 mEq/L (3.5-5.1); Sodium 136 mEq/L (136-145); Total Protein 6.3 g/dL (6.4-8.9); eGFR For African Americans > 60 (> 60); eGFR For Non-African Americans > 60 (> 60)
[2020-06-15] MEDS: Baclofen 10 MG TABLET PO PRN ×2 (06:55→20:33)
[2020-06-15] MEDS: Insulin LISPRO 300 UNITS/3 ML VIAL SQ SCH ×4 (08:33→20:17)
[2020-06-15] MEDS: Dexamethasone 4 MG/ML VIAL IVP SCH (08:39)
[2020-06-15] MEDS: Apixaban 5 MG TABLET PO SCH ×2 (08:40→20:17)
[2020-06-15] MEDS: Furosemide 20 MG/2 ML VIAL IVP SCH (08:42)
[2020-06-15] MEDS: Remdesivir 100 MG in 0.9 % Sodium Chloride 100 ML IVPB SCH (14:42)
[2020-06-15] MEDS: Azithromycin 250 MG TABLET PO SCH (14:44)
[2020-06-15] MEDS: cefTRIAXone 1,000 MG in 0.9 % Sodium Chloride Mini Bag 100 ML IVPB SCH (14:45)
[2020-06-16] MEDS: Ipratropium 1 PUFF INHALER IH SCH ×7 (00:20→23:10)
[2020-06-16] MEDS: Insulin LISPRO 300 UNITS/3 ML VIAL SQ SCH ×4 (08:32→21:17)
[2020-06-16 09:30] LABS: Hematocrit 46.1 % (37.5-50.1); Hemoglobin 15.1 g/dL (12.9-16.9); Mean Corpuscular HGB Conc 32.8 g/dL (31.6-35.5); Mean Corpuscular Hemoglobin 28.8 pg (28.0-33.3); Mean Corpuscular Volume 87.8 fL (83.0-100.0); Mean Platelet Volume 10.6 fL (9.4-12.4); Platelet Count 284 K/mcL (140-400); Red Blood Count 5.25 M/mcL (4.19-5.50); Red Cell Distribution Width 14.3 % (11.5-14.5); White Blood Count 12.7 K/mcL (4.3-11.1)
[2020-06-16 09:31] LABS: INR 1.5
[2020-06-16 09:51] LABS: Alanine Aminotransferase 61 Units/L (7-52); Albumin 3.5 g/dL (3.5-5.7); Albumin/Globulin Ratio 1.2 (1.1-2.2); Alkaline Phosphatase 54 Units/L (34-104); Aspartate Amino Transferase 27 Units/L (13-39); BUN/Creatinine Ratio 40 (6-26); Bilirubin,Total 1.2 mg/dL (0.3-1.0); Blood Urea Nitrogen 27 mg/dL (8-23); Calcium 8.6 mg/dL (8.6-10.3); Carbon Dioxide 27 mEq/L (23-29); Chloride 102 mEq/L (98-107); Globulin 2.9 g/dL (2.4-3.5); Glucose 150 mg/dL (70-105); Osmolality,Calculated 292 (280-300); Sodium 137 mEq/L (136-145); Total Protein 6.4 g/dL (6.4-8.9); eGFR For African Americans > 60 (> 60); eGFR For Non-African Americans > 60 (> 60)
[2020-06-16] MEDS: Dexamethasone 4 MG/ML VIAL IVP SCH (11:00)
[2020-06-16] MEDS: Apixaban 5 MG TABLET PO SCH ×2 (11:00→21:09)
[2020-06-16] MEDS: Furosemide 20 MG/2 ML VIAL IVP SCH (11:00)
[2020-06-16] MEDS: Remdesivir 100 MG in 0.9 % Sodium Chloride 100 ML IVPB SCH (16:50)
[2020-06-17] MEDS: Ipratropium 1 PUFF INHALER IH SCH ×4 (03:24→16:21)
[2020-06-17 04:58] LABS: Hematocrit 45.4 % (37.5-50.1); Hemoglobin 15.3 g/dL (12.9-16.9); Mean Corpuscular HGB Conc 33.7 g/dL (31.6-35.5); Mean Corpuscular Hemoglobin 29.7 pg (28.0-33.3); Mean Platelet Volume 10.3 fL (9.4-12.4); Platelet Count 283 K/mcL (140-400); Red Blood Count 5.16 M/mcL (4.19-5.50); White Blood Count 10.8 K/mcL (4.3-11.1)
[2020-06-17 05:02] LABS: INR 1.8; Prothrombin Time 20.3 Seconds (9.4-12.1)
[2020-06-17 05:08] LABS: Alanine Aminotransferase 56 Units/L (7-52); Albumin 3.4 g/dL (3.5-5.7); Albumin/Globulin Ratio 1.2 (1.1-2.2); Alkaline Phosphatase 49 Units/L (34-104); Aspartate Amino Transferase 21 Units/L (13-39); BUN/Creatinine Ratio 42 (6-26); Bilirubin,Total 1.3 mg/dL (0.3-1.0); Blood Urea Nitrogen 25 mg/dL (8-23); Calcium 8.4 mg/dL (8.6-10.3); Carbon Dioxide 25 mEq/L (23-29); Chloride 101 mEq/L (98-107); Globulin 2.8 g/dL (2.4-3.5); Glucose 121 mg/dL (70-105); Osmolality,Calculated 284 (280-300); Potassium 4.3 mEq/L (3.5-5.1); Sodium 134 mEq/L (136-145); Total Protein 6.2 g/dL (6.4-8.9); eGFR For African Americans > 60 (> 60); eGFR For Non-African Americans > 60 (> 60)
[2020-06-17] MEDS: Insulin LISPRO 300 UNITS/3 ML VIAL SQ SCH ×4 (09:16→19:44)
[2020-06-17] MEDS: Apixaban 5 MG TABLET PO SCH ×2 (09:23→19:43)
[2020-06-17] MEDS: Furosemide 20 MG/2 ML VIAL IVP SCH (09:23)
[2020-06-17] MEDS: Dexamethasone 4 MG/ML VIAL IVP SCH (09:23)
[2020-06-17] MEDS: Remdesivir 100 MG in 0.9 % Sodium Chloride 100 ML IVPB SCH (14:44)
[2020-06-17] MEDS ORDERED: Ipratropium 1 PUFF INHALER IH PRN (17:45)
[2020-06-18] MEDS: Apixaban 5 MG TABLET PO SCH (08:04)
[2020-06-18] MEDS: Furosemide 20 MG/2 ML VIAL IVP SCH (08:04)
[2020-06-18] MEDS ORDERED: Dexamethasone 4 MG/ML VIAL IVP SCH (09:00)
[2020-06-18 09:20] VITALS: BP 144/81
[2020-06-18] MEDS: Insulin LISPRO 300 UNITS/3 ML VIAL SQ SCH (10:32)
[2020-06-19] MEDS ORDERED: Dexamethasone 4 MG/ML VIAL IVP SCH (09:00)
== END 2020-06-18 13:08 | disposition home or self-care (01) | DRG 871 ==
LOC: EMEROOARM 15:38 → 2NENU 15:38 → SUATTDRO 22:08 → 2NENU 06-11 → SUATTDRO 06-12 14:16 → 3BNU 06-17 21:41
PROVIDERS: ADMIT Internal Medicine; ATTEND Internal Medicine